=== PATIENT | female | born 1990 | race Caucasian/White ===

== ENCOUNTER 2016-08-05 13:11 | Emergency (ER) | payer SELFPAY ==
[~2016-08-05] VITALS: Ht 162.6 cm; Wt 51.1 kg
[2016-08-05 13:32] VITALS: BP 118/83; PULSE 80; RESP 16; O2SAT 99
--- NOTE | 2016-08-05 16:08 | ED.REPORT ---
HPI-Dental/Mouth Prob Date of Service August 05, 2016 ED Provider: Jina Bustamante History of Present Illness: tooth ache on the right side, filling fell out long time ago, tooth broke about 1 month ago. no dental care. no primary care Nursing Notes Stated Complaint: DENTAL PAIN Chief Complaint: Dental Nursing Notes Reviewed: Yes Allergies: Coded Allergies: ciprofloxacin (Verified Allergy, Unknown, 08/05/16) ciprofloxacin HCl (Verified Allergy, Unknown, 08/05/16) General Time Seen by MD: 16:03 Chief Complaint Tooth pain Hx Obtained From: Patient Symptom Duration: Since onset Past Medical History Past Medical History Denies: Asthma Past Surgical History denies Smoking History Former Smoker (quit 2 days ago 08/05/2016) Social History Alcohol Use: Denies alcohol use Drug Use: Denies drug use Occupation lives with Mom, work at [employer] 08/05/2016 Ambulatory Status Independent Review of Systems Basic Review of Systems Eyes: Vision NL, No discharge Hematologic: No bleeding, No bruising Psychiatric: Normal thought content Physical Exam Initial Vital Signs Vital Signs (First) Date Time Temp Pulse Resp B/P Pulse Ox O2 Delivery O2 Flow Rate FiO2 08/05/16 13:32 37.1 80 16 118/83 99 Room Air Initial VS: Reviewed, Vital signs normal General/Constitutional: Well-developed, Well-nourished Head / Eyes: Atraumatic, Normocephalic, PERRL Respiratory: Breath sounds normal, Clear to auscultation, No respiratory distress Cardiovascular: Regular rate & rhythm, Heart sounds normal, Intact distal pulses Abdomen / GI: Soft, Non-tender, No guarding, No rebound, No distention Back: No CVA tenderness Lymphatic: No lymphadenopathy Extremities: Vascular intact, Neuro intact, No swelling, No tenderness Skin: Warm, Dry, No cyanosis Neurologic: Alert, Oriented, Nonfocal Psychiatric: Mood/affect normal, Behavior normal, Normal thought content ENT: Atraumatic, Airway patent, Mucous membranes moist, No trismus, Tympanic membs NL tooth in question is right upper molar. Has extensive decay. No gum swelling or facial swelling noted. no trismus Neck: Atraumatic, Supple, No meningismus General/Constitutional: Awake, Alert, No acute distress Respiratory / Chest: Atraumatic, Breath sounds NL, Breath sounds = bilat, No respiratory distress Cardiovascular: Heart rate NL, Regular rhythm, Heart sounds NL, No gallop Re-Eval/Medical Decision Med Decision/Clinical Course 26 year old presents for evualation of dental pain. Patient without resources. No sign of facial swelling, vitals are normal. Provided antibiotics and pain control. Discharge & Departure Primary Impression: Toothache Disposition: Home Patient Instructions: Dental Caries (ED) Additional Instructions: Oral exam indicates a large cavity. Please check with the dental resources to see if the tooth can be saved or if an extraction is indicated. Continue with amoxicillin 500 mg 3 times a day. Use ibuprofen 800 mg 3 times a day for 5 days. Can use hydrocodone 1 at night as needed for severe unrelenting pain. The dental clinic in [place] is open Sunday thru Sunday and they may be able to do walk ins. Please call them for information. Referrals: NOPCP (PCP) [facility] EDSupervising Provider for APC: Jonah Mondragon MD, Sue ARNP August 05, 2016 16:08
[2016-08-05 16:40] VITALS: BP 120/82; PULSE 71; O2SAT 99
== END 2016-08-05 16:41 | disposition home or self-care (01) ==
LOC: SED 13:11
DX: K08.89 Other specified disorders of teeth and supporting structures (principal); Z87.891 Personal history of nicotine dependence; Z88.1 Allergy status to other antibiotic agents
CPT/HCPCS: 96372; 99283; J1885